=== PATIENT | female | born 1970 | race Caucasian/White ===

== ENCOUNTER 2016-09-13 14:09 | Inpatient (IN) | payer OTHER ==
[~2016-09-13] VITALS: Ht 157.5 cm; Wt 150.5 kg
[~2016-09-13 14:09] MED LIST: ADVAIR HFA120 INHALA IH; ALBUTEROL2.5 MG/3 M IH; ALPRAZOLAM0.25 M2 PO; ALPRAZOLAM2 MG PO; AMBIEN CR6.25 MG PO; AMBIEN10 MG PO; AMBIEN5 M1 PO; AMITRIPTYLINE H10 MG PO; AMITRIPTYLINE H25 MG PO; AMLODIPINE BESYL5 MG PO; AMOXICILLIN875 MG PO; AUGMENTIN875 MG PO; Advair HFA 115/21 IH; Ambien PO; BACTRIM,SEPT1 TABLET PO; BENADRYL25 MG PO; BENAZEPRIL HCL10 MG PO; BENAZEPRIL HCL40 MG PO; BENTYL20 MG PO; CARAFATE1 GM PO; CEFDINIR300 MG PO; CELEXA40 MG PO; CIPRO500 MG PO; CIPROFLOXACIN500 M1 PO; COLACE100 MG PO; COMPAZINE10 MG PO; CONSTULOSE10 GM/15 M PO; COUMADIN,JANTO2.5 MG PO; COUMADIN10 MG PO; COUMADIN2 MG PO; COUMADIN2.5 MG PO; COUMADIN5 MG PO; COUMADIN6 MG PO; COUMADIN7.5 MG PO; CYMBALTA20 MG PO; CYMBALTA30 MG PO; CYMBALTA60 MG PO; Ceftin PO; Colace PO; Coumadin,Jantoven PO; DILAUDID2 MG PO; DILAUDID4 MG PO; DOCUSATE SODIU100 MG PO; DOXYCYCLINE HY100 MG PO; ELAVIL10 MG PO; ESCITALOPRAM OX20 MG PO; Elavil PO; FIORICET,ESG1 TABLET PO; FLEXERIL10 MG PO; FUROSEMIDE40 MG PO; Feosol PO; GABAPENTIN300 MG PO; GABAPENTIN600 MG PO; GUAIATUSSIN AC118 ML PO; GUAIFENESIN AC473 ML PO; HALOBETASOL PRO15 G1 TP; HYDROCHLOROTHIA25 MG PO; HYDROCODON-ACE1 EA12 PO; HYDROCODON-ACE1 EAC7 PO; HYDROMORPHONE HC4 MG PO; Hydrodiuril,Oretic,E PO; KEFLEX500 MG PO; Keflex PO; LEVOFLOXACIN750 MG PO; LEXAPRO10 MG PO; LEXAPRO20 MG PO; LOMOTIL TABLET1 EACH PO; LORCET 5-325 M1 EACH PO; LORCET HD PO; LOTENSIN10 MG PO; LOTENSIN40 MG PO; LOTRISONE15 GM TP; LOVENOX120 MG/0.8 SC; LOVENOX150 MG/1 M SC; Levaquin PO; Lexapro PO; Lotensin PO; Lovenox SC; MACRODANTIN100 MG PO; METHADONE10 MG PO; METHADONE5 MG PO; MIRTAZAPINE15 MG PO; MUPIROCIN15 GM TP; MYCOSTATIN 100,60 ML PO; Maalox, Mylanta PO; NEURONTIN100 MG PO; NEURONTIN300 MG PO; NITROSTAT0.3 MG SL; NITROSTAT0.4 MG SL; NORCO 10/3251 TABLET PO; NORCO 5/3251 TABLET PO; NORCO 7.5/321 TABLET PO; NORVASC10 MG PO; NORVASC5 MG PO; Neurontin PO; Norvasc PO; OXYCODONE HCL10 MG PO; OXYCODONE HCL5 MG PO; OXYCODONE-APAP1 EACH PO; OxyCODONE PO; PERCOCET 5/31 TABLET PO; PRAVACHOL20 MG PO; PRAVASTATIN SOD40 MG PO; PREDNISONE10 M1 PO; PREDNISONE10 MG PO; PREDNISONE50 MG PO; PROMETHAZINE HC25 M1 PO; PROTONIX20 MG PO; PROTONIX40 MG PO; PROVENTIL HFA6.7 GM IH; PROVENTIL,2.5 MG/0.5 AEROSOL; PROVENTIL,2.5 MG/0.5 IH; Percocet 5/325,Endoc PO; Phenergan PO; Proventil,Ventolin H IH; QUETIAPINE FUMA50 MG PO; REMERON15 M2 PO; ROBITUSSIN100 MG/5 M PO; Reglan PO; Remeron PO; SEROQUEL100 MG PO; SEROQUEL50 MG PO; SYMBICORT60 INHALAT IH; Senokot,Sennagen PO; TORADOL10 MG PO; TYLENOL REGULA325 MG PO; ULTRAVATE 0.05%15 GM PO; ULTRAVATE 0.05%15 GM TP; Ultram PO; VALIUM5 MG PO; VENTOLIN HFA18 GM IH; VICODIN ES 7.51 EAC1 PO; VOLTAREN 1% GE100 GM TP; VOLTAREN5 ML OP; WARFARIN SODIU7.5 MG PO; WARFARIN SODIUM10 MG PO; WARFARIN SODIUM5 MG PO; XANAX XR3 MG PO; XANAX0.5 MG PO; XANAX1 MG PO; XANAX2 MG PO; Xanax PO; ZANAFLEX4 M1 PO; ZOFRAN ODT4 MG PO; ZOFRAN4 MG PO
[2016-09-13 15:33] LABS: BASOPHIL COUNT 0.1 K/uL (0-0.1); EOSINOPHIL (%) 0.2 % (0-5); HEMATOCRIT 36.8 % (36.0-46.0); IMMATURE GRANULOCYTE (%) 1.3 % (0.0-0.7); IMMATURE GRANULOCYTE COUNT 0.3 K/uL; LYMPHOCYTE COUNT 1.4 K/uL (1.0-2.8); MCH 29.7 PG (29.0-34.0); MCHC 32.1 G/DL (30.0-36.0); MCV 92.7 FL (83-99); MONOCYTE (%) 4.7 % (3-12); NEUTROPHIL (%) 87.2 % (45-76); RBC DIS.WIDTH-SD 51.8 % (39-53); RED BLOOD COUNT 3.97 M/uL (3.80-5.20)
[2016-09-13 15:42] LABS: WHITE BLOOD COUNT 21.8 K/uL (4.1-10.2)
[2016-09-13 15:47] LABS: CHLORIDE 103 mEq/L (99-109); POTASSIUM 4.5 mEq/L (3.7-5.4); SODIUM 137 mEq/L (136-147)
[2016-09-13 15:50] LABS: GLUCOSE 121 mg/dL (70-99)
[2016-09-13 15:51] LABS: ANION GAP 8 MEQ/L (2-14)
[2016-09-13 15:53] LABS: ALKALINE PHOSPHATASE 146 IU/L (3-129); GFR ESTIMATE (CALCULATED) 51 mL/min/
[2016-09-13 15:54] LABS: UREA NITROGEN (BUN) 16 mg/dL (9-23)
[2016-09-13 15:57] LABS: TROP-I INTERPRETATION NEGATIVE; TROPONIN-I 0.02 ng/mL (0.0-0.30)
[2016-09-13 15:58] LABS: INFLUENZA A VIRAL ANTIGEN NEGATIVE; INFLUENZA B VIRAL ANTIGEN NEGATIVE
[2016-09-13 16:20] LABS: INTER. NORMALIZED RATIO 2.5; PROTHROMBIN TIME 25.9 (9.2-11.2)
[2016-09-13 16:22] LABS: QUANTITATIVE HCG < 4.0 MIU/ML
[2016-09-13] MEDS ORDERED: COUMADIN1 MG PO ×2 (16:32)
[2016-09-13] MEDS ORDERED: NORCO 7.5/321 TABLET PO (16:33)
[2016-09-13] MEDS ORDERED: SEROQUEL200 MG PO (16:34)
[2016-09-13] MEDS ORDERED: ELAVIL10 MG PO (16:34)
[2016-09-13] MEDS ORDERED: CYMBALTA60 MG PO (16:34)
[2016-09-13] MEDS ORDERED: DURAGESIC12 MCG TD (16:35)
[2016-09-13] MEDS ORDERED: DURAGESIC25 MCG TD (16:36)
[2016-09-13 17:38] VITALS: BP 125/66
[2016-09-13 17:54] LABS: MEAN PLAT.VOLUME 11.3 uM^3 (9.5-12.4); PLAT.SUFFICIENCY ADEQUATE; PLATELET COUNT 184 K/uL (156-360)
[2016-09-13 19:24] VITALS: BP 117/58
[2016-09-13 23:10] VITALS: BP 116/60
[2016-09-14 03:05] VITALS: BP 110/64
[2016-09-14 03:08] VITALS: BP 100/56
[2016-09-14 07:41] LABS: INTER. NORMALIZED RATIO 2.2; PROTHROMBIN TIME 22.7 (9.2-11.2)
[2016-09-14 07:43] LABS: EOSINOPHIL (%) 1.1 % (0-5); EOSINOPHIL COUNT 0.2 K/uL (0-0.3); HEMATOCRIT 35.6 % (36.0-46.0); IMMATURE GRANULOCYTE (%) 0.8 % (0.0-0.7); IMMATURE GRANULOCYTE COUNT 0.1 K/uL; INSTRUMENT ABS NEUTROPHIL CT 14.4 K/uL; LYMPHOCYTE COUNT 1.3 K/uL (1.0-2.8); MCHC 31.5 G/DL (30.0-36.0); MCV 95.4 FL (83-99); MONOCYTE (%) 5.5 % (3-12); MONOCYTE COUNT 0.9 K/uL (0-0.8); NEUTROPHIL (%) 84.9 % (45-76); NEUTROPHIL COUNT 14.4 K/uL (1.8-6.4); RBC DIS.WIDTH-CV 15.4 % (11.8-14.6); RED BLOOD COUNT 3.73 M/uL (3.80-5.20)
[2016-09-14 07:52] LABS: ADD MIUA? YES; BILIRUBIN NEGATIVE; BLOOD NEGATIVE; COLOR YELLOW ((YELLOW)); GLUCOSE (STRIP) NEGATIVE; KETONES NEGATIVE; LEUKOCYTES SMALL; NITRITE NEGATIVE; PROTEIN (STRIP) 100; SPECIFIC GRAVITY 1.026 (1.000-1.030)
[2016-09-14 07:55] LABS: ANION GAP 7 MEQ/L (2-14); CHLORIDE 106 MEQ/L (99-109); GFR ESTIMATE (CALCULATED) > 59 mL/min/; GLUCOSE 108 mg/dL (70-99); POTASSIUM 4.7 MEQ/L (3.7-5.4); SAMPLE HEMOLYSIS CHECK 0; SAMPLE ICTERIC CHECK 0; SAMPLE LIPEMIA CHECK 0; SODIUM 141 MEQ/L (136-147); UREA NITROGEN (BUN) 19 mg/dL (9-23)
[2016-09-14 07:59] LABS: BACTERIA RARE /HPF; EPITHELIAL CELLS 1+ /HPF; MUCUS TRACE /LPF; RED BLOOD CELLS 0-5 /HPF (0-5); UCUL ADDED? NO; WHITE BLOOD CELLS 30-40 /HPF (0-5)
[2016-09-14 08:22] LABS: MEAN PLAT.VOLUME 11.6 uM^3 (9.5-12.4); PLAT.SUFFICIENCY ADEQUATE; PLATELET COUNT 165 K/uL (156-360)
[2016-09-14 08:55] VITALS: BP 116/62
[2016-09-14 12:49] VITALS: BP 94/57
[2016-09-14 16:47] VITALS: BP 96/57
[2016-09-14 23:59] VITALS: BP 116/66
[2016-09-15 07:14] LABS: INTER. NORMALIZED RATIO 2.5; PROTHROMBIN TIME 25.9 (9.2-11.2)
[2016-09-15 07:39] LABS: INTERNAL CONTROL VALID? YES
[2016-09-15 07:50] VITALS: BP 120/70
[2016-09-15 10:17] LABS: EOSINOPHIL (%) 2.9 % (0-5); EOSINOPHIL COUNT 0.3 K/uL (0-0.3); HEMATOCRIT 35.1 % (36.0-46.0); IMMATURE GRANULOCYTE (%) 1.2 % (0.0-0.7); IMMATURE GRANULOCYTE COUNT 0.1 K/uL; INSTRUMENT ABS NEUTROPHIL CT 7.1 K/uL; LYMPHOCYTE COUNT 1.4 K/uL (1.0-2.8); MCH 29.4 PG (29.0-34.0); MCHC 31.1 G/DL (30.0-36.0); MCV 94.6 FL (83-99); MEAN PLAT.VOLUME 11.5 uM^3 (9.5-12.4); MONOCYTE (%) 5.1 % (3-12); MONOCYTE COUNT 0.5 K/uL (0-0.8); NEUTROPHIL (%) 75.5 % (45-76); NEUTROPHIL COUNT 7.1 K/uL (1.8-6.4); PLATELET COUNT 185 K/uL (156-360); RBC DIS.WIDTH-CV 15.2 % (11.8-14.6); RBC DIS.WIDTH-SD 53.1 % (39-53); RED BLOOD COUNT 3.71 M/uL (3.80-5.20)
[2016-09-15 10:18] LABS: WHITE BLOOD COUNT 9.5 K/uL (4.1-10.2)
[2016-09-15 11:00] LABS: ANION GAP 9 MEQ/L (2-14); CHLORIDE 106 MEQ/L (99-109); GFR ESTIMATE (CALCULATED) > 59 mL/min/; GLUCOSE 85 mg/dL (70-99); MAGNESIUM 1.9 mg/dl (1.3-2.7); POTASSIUM 4.2 MEQ/L (3.7-5.4); SAMPLE HEMOLYSIS CHECK 0; SAMPLE ICTERIC CHECK 0; SAMPLE LIPEMIA CHECK 0; SODIUM 141 MEQ/L (136-147); UREA NITROGEN (BUN) 15 mg/dL (9-23)
[2016-09-15 11:50] VITALS: BP 120/64
[2016-09-15 16:15] VITALS: BP 139/88
[2016-09-15 23:46] VITALS: BP 102/87
[2016-09-16 07:16] LABS: EOSINOPHIL COUNT 0.3 K/uL (0-0.3); HEMATOCRIT 31.9 % (36.0-46.0); IMMATURE GRANULOCYTE (%) 1.8 % (0.0-0.7); IMMATURE GRANULOCYTE COUNT 0.1 K/uL; INSTRUMENT ABS NEUTROPHIL CT 4.5 K/uL; LYMPHOCYTE COUNT 1.3 K/uL (1.0-2.8); MCH 29.9 PG (29.0-34.0); MCHC 31.3 G/DL (30.0-36.0); MCV 95.2 FL (83-99); MONOCYTE COUNT 0.5 K/uL (0-0.8); NEUTROPHIL (%) 66.9 % (45-76); NEUTROPHIL COUNT 4.5 K/uL (1.8-6.4); PLATELET COUNT 190 K/uL (156-360); RBC DIS.WIDTH-CV 15.3 % (11.8-14.6); RBC DIS.WIDTH-SD 53.8 % (39-53); RED BLOOD COUNT 3.35 M/uL (3.80-5.20); WHITE BLOOD COUNT 6.8 K/uL (4.1-10.2)
[2016-09-16 07:31] LABS: INTER. NORMALIZED RATIO 2.8; PROTHROMBIN TIME 29.9 (9.2-11.2)
[2016-09-16 07:39] LABS: ALKALINE PHOSPHATASE 114 IU/L (3-129); ANION GAP 6 MEQ/L (2-14); CHLORIDE 108 MEQ/L (99-109); GFR ESTIMATE (CALCULATED) > 59 mL/min/; GLUCOSE 105 mg/dL (70-99); SAMPLE HEMOLYSIS CHECK 0; SAMPLE ICTERIC CHECK 0; SAMPLE LIPEMIA CHECK 0; SODIUM 141 MEQ/L (136-147); TOTAL BILIRUBIN 0.3 MG/DL (0.0-1.0); UREA NITROGEN (BUN) 12 mg/dL (9-23)
[2016-09-16 08:10] VITALS: BP 131/82
[2016-09-16 16:05] LABS: TROP-I INTERPRETATION NEGATIVE; TROPONIN-I < 0.01 ng/mL (0.0-0.30)
[2016-09-16 16:35] VITALS: BP 162/93
[2016-09-17 00:18] VITALS: BP 162/66
[2016-09-17 07:13] LABS: INTER. NORMALIZED RATIO 4.6; PROTHROMBIN TIME 49.3 (9.2-11.2)
[2016-09-17 07:47] VITALS: BP 141/82
[2016-09-18 00:28] VITALS: BP 135/71
[2016-09-18 06:50] LABS: MCH 29.6 PG (29.0-34.0); MCHC 32.4 G/DL (30.0-36.0); MCV 91.4 FL (83-99); MEAN PLAT.VOLUME 11.2 uM^3 (9.5-12.4); NRBC (%) 0.3 /100 WBC (0-0); RBC DIS.WIDTH-CV 14.6 % (11.8-14.6); RBC DIS.WIDTH-SD 49.1 % (39-53); RED BLOOD COUNT 3.72 M/uL (3.80-5.20)
[2016-09-18 06:52] LABS: PLATELET COUNT 249 K/uL (156-360); WHITE BLOOD COUNT 8.9 K/uL (4.1-10.2)
[2016-09-18 06:53] LABS: PROTHROMBIN TIME 59.9 (9.2-11.2)
[2016-09-18 07:15] LABS: INTER. NORMALIZED RATIO 5.6
[2016-09-18 07:36] LABS: ANION GAP 8 MEQ/L (2-14); CHLORIDE 105 MEQ/L (99-109); GFR ESTIMATE (CALCULATED) > 59 mL/min/; GLUCOSE 112 mg/dL (70-99); POTASSIUM 4.1 MEQ/L (3.7-5.4); SAMPLE HEMOLYSIS CHECK 0; SAMPLE ICTERIC CHECK 0; SAMPLE LIPEMIA CHECK 0; SODIUM 143 MEQ/L (136-147); UREA NITROGEN (BUN) 13 mg/dL (9-23)
[2016-09-18 07:41] LABS: ALKALINE PHOSPHATASE 153 IU/L (3-129); TOTAL BILIRUBIN 0.4 MG/DL (0.0-1.0)
[2016-09-18 08:26] LABS: ATYPICAL LYMPHOCYTE 1.7 %; EOSINOPHIL ABS CT 0; INSTRUMENT ABS NEUTROPHIL CT 6.2 K/uL; LYMPHOCYTES 12.2 % (15.0-45.0); MYELOCYTES 1.7 %; PLAT.SUFFICIENCY ADEQUATE; SEG.NEUTROPHILS 78.3 % (46.0-76.0); SMUDGE CELLS 2.6
[2016-09-18 08:28] VITALS: BP 132/82
[2016-09-18 15:40] VITALS: BP 148/80
[2016-09-18 23:53] VITALS: BP 141/77
[2016-09-19 06:41] LABS: HEMATOCRIT 33.7 % (36.0-46.0); MCH 29.4 PG (29.0-34.0); MCHC 32.3 G/DL (30.0-36.0); MCV 90.8 FL (83-99); MEAN PLAT.VOLUME 10.7 uM^3 (9.5-12.4); NRBC (%) 0.2 /100 WBC (0-0); PLATELET COUNT 263 K/uL (156-360); RBC DIS.WIDTH-CV 14.8 % (11.8-14.6); RBC DIS.WIDTH-SD 48.7 % (39-53); RED BLOOD COUNT 3.71 M/uL (3.80-5.20); WHITE BLOOD COUNT 8.9 K/uL (4.1-10.2)
[2016-09-19 07:04] LABS: ANION GAP 10 MEQ/L (2-14); CHLORIDE 104 MEQ/L (99-109); GFR ESTIMATE (CALCULATED) > 59 mL/min/; GLUCOSE 104 mg/dL (70-99); POTASSIUM 3.9 MEQ/L (3.7-5.4); SAMPLE HEMOLYSIS CHECK 0; SAMPLE ICTERIC CHECK 0; SAMPLE LIPEMIA CHECK 0; SODIUM 142 MEQ/L (136-147); UREA NITROGEN (BUN) 17 mg/dL (9-23)
[2016-09-19 07:06] LABS: PROTHROMBIN TIME 54.2 (9.2-11.2)
[2016-09-19 07:08] LABS: INTER. NORMALIZED RATIO 5.1
[2016-09-19 07:45] VITALS: BP 144/62
[2016-09-19 11:21] VITALS: BP 150/62
[2016-09-19] MEDS ORDERED: DOXYCYCLINE HY100 M3 PO (12:20)
== END 2016-09-19 16:13 | disposition home or self-care (01) | DRG 871 ==
LOC: EME 14:09 → 2EAST 16:21 → EDOF 16:21 → 2EAST 17:32
PROVIDERS: Emergency Medicine; Internal Medicine
DX: A41.9 Sepsis, unspecified organism (principal); J15.212 Pneumonia due to Methicillin resistant Staphylococcus aureus; D68.9 Coagulation defect, unspecified; I27.2 Other secondary pulmonary hypertension; D68.51 Activated protein C resistance; J96.01 Acute respiratory failure with hypoxia; I10 Essential (primary) hypertension; G89.4 Chronic pain syndrome; Z86.711 Personal history of pulmonary embolism; Z86.718 Personal history of other venous thrombosis and embolism; T50.905A Adverse effect of unspecified drugs, medicaments and biological substances, initial encounter; Z95.828 Presence of other vascular implants and grafts; Z79.01 Long term (current) use of anticoagulants; E66.01 Morbid (severe) obesity due to excess calories; Z68.44 Body mass index [BMI] 60.0-69.9, adult; E78.5 Hyperlipidemia, unspecified; D64.9 Anemia, unspecified; Z86.73 Personal history of transient ischemic attack (TIA), and cerebral infarction without residual deficits; F41.9 Anxiety disorder, unspecified; J45.909 Unspecified asthma, uncomplicated; G47.33 Obstructive sleep apnea (adult) (pediatric); E11.9 Type 2 diabetes mellitus without complications; Z86.14 Personal history of Methicillin resistant Staphylococcus aureus infection; R79.89 Other specified abnormal findings of blood chemistry; R65.20 Severe sepsis without septic shock
CPT/HCPCS: 70450; 71010; 71020; 80048; 80053; 81003; 83605; 83735; 84484; 84702; 85025; 85027; 85610; 87040; 87070; 87077; 87147; 87186; 87205; 87449; 87502; 93005; 94010; 94640; 94640 76; 94667; 94760; 94799; 99202; 99281; 99285; J1885; J2405; J2543; J2765; J3370; J7030; J7050

== ENCOUNTER 2016-10-12 21:22 | Emergency (ER) | payer OTHER ==
[~2016-10-12] VITALS: Ht 157.5 cm; Wt 142.9 kg
[~2016-10-12 21:22] MED LIST changes: +COUMADIN1 MG PO; +DOXYCYCLINE HY100 M3 PO; +DURAGESIC12 MCG TD; +DURAGESIC25 MCG TD; +SEROQUEL200 MG PO
[2016-10-13 00:31] VITALS: BP 129/93
== END 2016-10-13 00:32 | disposition home or self-care (01) ==
LOC: EME 21:22
DX: S00.12XA Contusion of left eyelid and periocular area, initial encounter (principal); S09.90XA Unspecified injury of head, initial encounter; I10 Essential (primary) hypertension; E66.01 Morbid (severe) obesity due to excess calories; Y04.2XXA Assault by strike against or bumped into by another person, initial encounter; Y92.89 Other specified places as the place of occurrence of the external cause; Z88.6 Allergy status to analgesic agent
CPT/HCPCS: 70450; 70480; 99281; 99283; J0595

== ENCOUNTER 2016-11-17 11:50 | Emergency (ER) | payer OTHER ==
[~2016-11-17] VITALS: Ht 160 cm; Wt 145.8 kg
[2016-11-17 15:25] LABS: HEMATOCRIT 40.5 % (36.0-46.0); MCH 30.1 PG (29.0-34.0); MCHC 33.3 G/DL (30.0-36.0); MCV 90.4 FL (83-99); RBC DIS.WIDTH-CV 14.9 % (11.8-14.6); RBC DIS.WIDTH-SD 49.7 % (39-53); RED BLOOD COUNT 4.48 M/uL (3.80-5.20); WHITE BLOOD COUNT 10.3 K/uL (4.1-10.2)
[2016-11-17 15:32] LABS: INTER. NORMALIZED RATIO 2.3; PROTHROMBIN TIME 24.5 (9.2-11.2)
[2016-11-17 15:45] LABS: CHLORIDE 104 mEq/L (99-109); POTASSIUM 3.8 mEq/L (3.7-5.4); SODIUM 141 mEq/L (136-147)
[2016-11-17 15:46] LABS: GLUCOSE 147 mg/dL (70-99)
[2016-11-17 15:48] LABS: ANION GAP 9 MEQ/L (2-14)
[2016-11-17 15:50] LABS: GFR ESTIMATE (CALCULATED) 56 mL/min/
[2016-11-17 15:51] LABS: UREA NITROGEN (BUN) 16 mg/dL (9-23)
[2016-11-17] MEDS ORDERED: NAPROXEN500 MG PO (16:15)
[2016-11-17 16:43] LABS: MEAN PLAT.VOLUME 10.7 uM^3 (9.5-12.4); PLAT.SUFFICIENCY ADEQUATE; PLATELET COUNT 232 K/uL (156-360)
[2016-11-17 17:10] LABS: Estimated Average Glucose 134 mg/dL (70-123); HEMOGLOBIN A1c (GLYCOHEMOGLOB) 6.3 % HGB (Below 5.7)
[2016-11-17 17:41] LABS: ADD MIUA? YES; BILIRUBIN NEGATIVE; BLOOD LARGE; COLOR YELLOW ((YELLOW)); GLUCOSE (STRIP) NEGATIVE; KETONES NEGATIVE; LEUKOCYTES MODERATE; PROTEIN (STRIP) NEGATIVE; SPECIFIC GRAVITY 1.018 (1.000-1.030); UROBILINOGEN 0.2 MG/DL (0.2-1.0)
[2016-11-17 17:51] LABS: BACTERIA RARE /HPF; EPITHELIAL CELLS 2+ /HPF; HYALINE CASTS 0-5 /LPF; MUCUS TRACE /LPF; RED BLOOD CELLS 20-30 /HPF (0-5); UCUL ADDED? NO
[2016-11-17 17:54] LABS: NITRITE POSITIVE
[2016-11-17] MEDS ORDERED: KEFLEX500 MG PO (18:01)
[2016-11-17] MEDS ORDERED: PYRIDIUM200 MG PO (18:49)
[2016-11-17 19:02] VITALS: BP 95/68
== END 2016-11-17 19:03 | disposition home or self-care (01) ==
LOC: EME 11:50
PROVIDERS: Physician Assistant; Physician Assistant Medical
DX: N95.0 Postmenopausal bleeding (principal); N30.90 Cystitis, unspecified without hematuria; Z91.81 History of falling; Z86.711 Personal history of pulmonary embolism; Z79.01 Long term (current) use of anticoagulants; I10 Essential (primary) hypertension; K21.9 Gastro-esophageal reflux disease without esophagitis
CPT/HCPCS: 76856; 80048; 81003; 83036; 84702; 85027; 85610; 99281; 99284; J1885

== ENCOUNTER 2016-12-01 15:47 | Inpatient (IN) | payer OTHER ==
[~2016-12-01] VITALS: Ht 157.5 cm; Wt 160.1 kg
[~2016-12-01 15:47] MED LIST changes: +NAPROXEN500 MG PO; +PYRIDIUM200 MG PO
[2016-12-01 16:52] LABS: POINT-OF-CARE METER ID UU13113702
[2016-12-01 17:08] LABS: HEMATOCRIT 40.2 % (36.0-46.0); MCH 29.6 PG (29.0-34.0); MCHC 32.8 G/DL (30.0-36.0); MCV 90.1 FL (83-99); RBC DIS.WIDTH-CV 15.1 % (11.8-14.6); RBC DIS.WIDTH-SD 50.3 % (39-53); RED BLOOD COUNT 4.46 M/uL (3.80-5.20); WHITE BLOOD COUNT 8.7 K/uL (4.1-10.2)
[2016-12-01 17:15] LABS: INTER. NORMALIZED RATIO 2.5
[2016-12-01 17:23] LABS: CHLORIDE 103 mEq/L (99-109); POTASSIUM 3.6 mEq/L (3.7-5.4); SODIUM 138 mEq/L (136-147)
[2016-12-01 17:25] LABS: GLUCOSE 94 mg/dL (70-99)
[2016-12-01 17:26] LABS: ANION GAP 13 MEQ/L (2-14)
[2016-12-01 17:29] LABS: GFR ESTIMATE (CALCULATED) 14 mL/min/
[2016-12-01 17:30] LABS: UREA NITROGEN (BUN) 29 mg/dL (9-23)
[2016-12-01 17:32] LABS: TROP-I INTERPRETATION NEGATIVE; TROPONIN-I < 0.01 ng/mL (0.0-0.30)
[2016-12-01 17:37] LABS: QUANTITATIVE HCG 4.6 MIU/ML
[2016-12-01 18:08] LABS: HEMATOLOGY COMMENT 1 SN; MEAN PLAT.VOLUME 10.9 uM^3 (9.5-12.4); PLAT.SUFFICIENCY ADEQUATE; PLATELET COUNT 207 K/uL (156-360)
[2016-12-01 18:35] LABS: CREATINE KINASE 47 IU/L (1-294)
[2016-12-01] MEDS ORDERED: NORCO 5/3251 TABLET PO (19:17)
[2016-12-01] MEDS ORDERED: PROTONIX40 MG PO (19:18)
[2016-12-01] MEDS ORDERED: LYRICA50 MG PO (19:19)
[2016-12-01] MEDS ORDERED: HYDROCHLOROTHIA25 MG PO (19:19)
[2016-12-01] MEDS ORDERED: LYRICA75 MG PO (19:20)
[2016-12-01 20:24] LABS: ADD MIUA? YES; BILIRUBIN NEGATIVE; BLOOD SMALL; COLOR YELLOW ((YELLOW)); GLUCOSE (STRIP) NEGATIVE; KETONES NEGATIVE; LEUKOCYTES LARGE; NITRITE NEGATIVE; PROTEIN (STRIP) 100; SPECIFIC GRAVITY 1.015 (1.000-1.030); UROBILINOGEN 0.2 MG/DL (0.2-1.0)
[2016-12-01 20:39] LABS: BACTERIA 3+ /HPF; CASTS NONE SEEN /LPF; CRYSTALS NONE SEEN; EPITHELIAL CELLS 2+ /HPF; MUCUS 1+ /LPF; RED BLOOD CELLS 0-5 /HPF (0-5); UCUL ADDED? YES
[2016-12-01 20:40] LABS: WHITE BLOOD CELLS TNTC /HPF (0-5)
[2016-12-01 22:15] LABS: HDL CHOLESTEROL 42 MG/DL (Desirable>=50); LDL CHOLESTEROL 106 mg/dL (Desirable<100); NON-HDL CHOLESTEROL 139 mg/dL (Desirable<160); TOTAL CHOLESTEROL 181 mg/dL (Desirable<200); TRIGLYCERIDES 166 MG/DL (Normal: <150)
[2016-12-01 22:41] LABS: AMPHETAMINES QUANT VALUE 0 NG/ML; BARBITUATES QUANT VALUE 0 NG/ML; BENZODIAZEPINES QUANT VALUE 0 NG/ML; BENZODIAZEPINES, URINE SCREEN Negative (200 ng/mL); MARIJUANA QUANT VALUE 0 NG/ML; PHENCYCLIDINE QUANT VALUE 0 NG/ML
[2016-12-01 22:43] LABS: Estimated Average Glucose 128 mg/dL (70-123); HEMOGLOBIN A1c (GLYCOHEMOGLOB) 6.1 % HGB (Below 5.7)
[2016-12-02 06:10] LABS: HEMATOCRIT 37.4 % (36.0-46.0); MCH 29.3 PG (29.0-34.0); MCHC 32.1 G/DL (30.0-36.0); MCV 91.2 FL (83-99); PLATELET COUNT 195 K/uL (156-360); RBC DIS.WIDTH-CV 15.4 % (11.8-14.6); RBC DIS.WIDTH-SD 51.4 % (39-53); WHITE BLOOD COUNT 7.2 K/uL (4.1-10.2)
[2016-12-02 08:58] VITALS: BP 102/60
[2016-12-02 09:43] LABS: ANION GAP 14 MEQ/L (2-14); CHLORIDE 107 MEQ/L (99-109); GFR ESTIMATE (CALCULATED) 24 mL/min/; GLUCOSE 114 mg/dL (70-99); POTASSIUM 4.1 MEQ/L (3.7-5.4); SAMPLE HEMOLYSIS CHECK 0; SAMPLE ICTERIC CHECK 0; SAMPLE LIPEMIA CHECK 0; SODIUM 144 MEQ/L (136-147); UREA NITROGEN (BUN) 27 mg/dL (9-23)
[2016-12-02 13:02] LABS: UR CREATININE CONCENTRATION 138.2 MG/DL
[2016-12-02 15:29] VITALS: BP 118/64
[2016-12-02 17:08] VITALS: BP 123/72
[2016-12-02 17:09] VITALS: BP 146/91
[2016-12-02 20:00] VITALS: BP 132/76
[2016-12-02 23:50] VITALS: BP 117/69
[2016-12-03 03:42] VITALS: BP 125/69
[2016-12-03 06:20] LABS: MCH 29.5 PG (29.0-34.0); MCHC 32.1 G/DL (30.0-36.0); MCV 92.1 FL (83-99); MEAN PLAT.VOLUME 11.6 uM^3 (9.5-12.4); PLATELET COUNT 168 K/uL (156-360); RBC DIS.WIDTH-CV 15.2 % (11.8-14.6); RBC DIS.WIDTH-SD 52.4 % (39-53); RED BLOOD COUNT 3.69 M/uL (3.80-5.20); WHITE BLOOD COUNT 6.2 K/uL (4.1-10.2)
[2016-12-03 06:39] LABS: INTER. NORMALIZED RATIO 3.5; PROTHROMBIN TIME 40.9 SEC (10.2-12.9)
[2016-12-03 07:00] LABS: ANION GAP 6 MEQ/L (2-14); CHLORIDE 105 MEQ/L (99-109); GFR ESTIMATE (CALCULATED) 56 mL/min/; GLUCOSE 119 mg/dL (70-99); POTASSIUM 4.1 MEQ/L (3.7-5.4); SAMPLE HEMOLYSIS CHECK 0; SAMPLE ICTERIC CHECK 0; SAMPLE LIPEMIA CHECK 0; SODIUM 140 MEQ/L (136-147); UREA NITROGEN (BUN) 19 mg/dL (9-23)
[2016-12-03 08:12] VITALS: BP 109/64
[2016-12-03] MEDS ORDERED: CEFDINIR300 MG PO (11:02)
== END 2016-12-03 12:00 | disposition home or self-care (01) | DRG 683 ==
LOC: EME 15:47 → 5SOUTH 21:15 → EDOF 21:15 → 5SOUTH 21:15 → EDOF 12-02 00:02 → 5SOUTH 12-02 00:03
PROVIDERS: Emergency Medicine; Hospitalist; Internal Medicine; Physician Assistant Medical
DX: N17.1 Acute kidney failure with acute cortical necrosis (principal); D68.51 Activated protein C resistance; E11.40 Type 2 diabetes mellitus with diabetic neuropathy, unspecified; I95.9 Hypotension, unspecified; G45.9 Transient cerebral ischemic attack, unspecified; N30.00 Acute cystitis without hematuria; E66.01 Morbid (severe) obesity due to excess calories; E78.5 Hyperlipidemia, unspecified; E86.0 Dehydration; E87.6 Hypokalemia; F32.9 Major depressive disorder, single episode, unspecified; G47.00 Insomnia, unspecified; G47.33 Obstructive sleep apnea (adult) (pediatric); I10 Essential (primary) hypertension; Z87.440 Personal history of urinary (tract) infections; J45.909 Unspecified asthma, uncomplicated; K21.9 Gastro-esophageal reflux disease without esophagitis; Z68.44 Body mass index [BMI] 60.0-69.9, adult; Z79.01 Long term (current) use of anticoagulants; Z79.899 Other long term (current) drug therapy; Z80.3 Family history of malignant neoplasm of breast; Z83.3 Family history of diabetes mellitus; Z86.14 Personal history of Methicillin resistant Staphylococcus aureus infection; Z86.711 Personal history of pulmonary embolism; Z86.718 Personal history of other venous thrombosis and embolism; Z86.73 Personal history of transient ischemic attack (TIA), and cerebral infarction without residual deficits; Z90.49 Acquired absence of other specified parts of digestive tract; G89.29 Other chronic pain; H53.8 Other visual disturbances; M54.5 Low back pain; M62.838 Other muscle spasm; R00.0 Tachycardia, unspecified; R25.1 Tremor, unspecified; R26.2 Difficulty in walking, not elsewhere classified
CPT/HCPCS: 70450; 70551; 71010; 76770; 80048; 80061; 80306 90; 81003; 82010; 82436; 82550; 82550 91; 82570; 82948; 83036; 84300; 84484; 84702; 85027; 85610; 87077; 87086; 87186; 93005; 99281; 99285; J0696; J2060; J2405; J7030; J7050

== ENCOUNTER 2017-05-26 11:04 | Observation (INO) | payer OTHER ==
[~2017-05-26] VITALS: Ht 160 cm; Wt 163.5 kg
[~2017-05-26 11:04] MED LIST changes: +LYRICA100 MG PO; +LYRICA50 MG PO
[2017-05-26 12:16] LABS: HEMATOCRIT 35.5 % (36.0-46.0); HEMOGLOBIN 11.8 G/DL (11.9-15.5); MCH 29.4 PG (29.0-34.0); MCHC 33.2 G/DL (30.0-36.0); MCV 88.3 FL (83-99); PLATELET COUNT 184 K/uL (156-360); RBC DIS.WIDTH-CV 15.1 % (11.8-14.6); RBC DIS.WIDTH-SD 49.5 % (39-53); RED BLOOD COUNT 4.02 M/uL (3.80-5.20); WHITE BLOOD COUNT 8.4 K/uL (4.1-10.2)
[2017-05-26 12:21] LABS: INTER. NORMALIZED RATIO 2.8
[2017-05-26 12:23] LABS: CHLORIDE 100 mEq/L (99-109); POTASSIUM 3.9 mEq/L (3.7-5.4); SODIUM 134 mEq/L (136-147)
[2017-05-26 12:24] LABS: GLUCOSE 117 mg/dL (70-99); PTT 45.9 SEC (25-37)
[2017-05-26 12:28] LABS: CREATININE 2.9 mg/dL (0.6-1.3); GFR ESTIMATE (CALCULATED) 18 mL/min/
[2017-05-26 12:29] LABS: UREA NITROGEN (BUN) 47 mg/dL (9-23)
[2017-05-26] MEDS ORDERED: HYDROCODON-ACE1 EAC9 PO (15:58)
[2017-05-26] MEDS ORDERED: PANTOPRAZOLE SO40 MG PO (15:58)
[2017-05-26] MEDS ORDERED: QUETIAPINE FUM300 MG PO (16:00)
[2017-05-26] MEDS ORDERED: AMLODIPINE BESYL5 MG PO (16:01)
[2017-05-26] MEDS ORDERED: ZOLPIDEM TARTRA10 MG PO (16:01)
[2017-05-26] MEDS ORDERED: ALPRAZOLAM1 MG PO (16:02)
[2017-05-26] MEDS ORDERED: PROMETHAZINE HC25 M1 PO (16:02)
[2017-05-26] MEDS ORDERED: DICLOFENAC SOD100 G1 TP (16:03)
[2017-05-26] MEDS ORDERED: LYRICA100 MG PO (16:04)
[2017-05-26] MEDS ORDERED: FENTANYL1 EAC5 TD (16:04)
[2017-05-26] MEDS ORDERED: AMITRIPTYLINE H10 MG PO (16:06)
[2017-05-26] MEDS ORDERED: CYCLOBENZAPRINE10 MG PO (16:06)
[2017-05-26] MEDS ORDERED: DULOXETINE HCL60 MG PO (16:07)
[2017-05-26] MEDS ORDERED: BENAZEPRIL HCL40 MG PO (16:07)
[2017-05-26] MEDS ORDERED: WARFARIN SODIUM5 MG PO (16:10)
[2017-05-26] MEDS ORDERED: VENTOLIN HFA18 GM IH (16:12)
[2017-05-26] MEDS ORDERED: HYDROCHLOROTHIA25 MG PO (16:13)
[2017-05-26 18:06] VITALS: BP 99/59
[2017-05-26 20:18] VITALS: BP 104/54; BP 110/59
[2017-05-26 21:53] LABS: APPEARANCE SL.HAZY ((CLEAR)); BILIRUBIN NEGATIVE; BLOOD MODERATE; COLOR YELLOW ((YELLOW)); GLUCOSE (STRIP) NEGATIVE; KETONES NEGATIVE; LEUKOCYTES SMALL; NITRITE NEGATIVE; PROTEIN (STRIP) NEGATIVE; SPECIFIC GRAVITY 1.008 (1.000-1.030); UROBILINOGEN 0.2 MG/DL (0.2-1.0)
[2017-05-26 22:03] LABS: BACTERIA RARE /HPF; EPITHELIAL CELLS RARE /HPF; MUCUS TRACE /LPF; RED BLOOD CELLS 0-5 /HPF (0-5); UCUL ADDED? YES; WHITE BLOOD CELLS TNTC /HPF (0-5)
[2017-05-26 22:37] LABS: UR CREATININE CONCENTRATION 52.3 MG/DL
[2017-05-27 00:51] VITALS: BP 108/50
[2017-05-27 04:04] VITALS: BP 95/56
[2017-05-27 05:55] LABS: HEMATOCRIT 32.4 % (36.0-46.0); HEMOGLOBIN 10.3 G/DL (11.9-15.5); MCH 28.1 PG (29.0-34.0); MCHC 31.8 G/DL (30.0-36.0); MCV 88.5 FL (83-99); PLATELET COUNT 199 K/uL (156-360); RBC DIS.WIDTH-CV 15.3 % (11.8-14.6); RBC DIS.WIDTH-SD 49.9 % (39-53); RED BLOOD COUNT 3.66 M/uL (3.80-5.20); WHITE BLOOD COUNT 5.9 K/uL (4.1-10.2)
[2017-05-27 06:13] LABS: INTER. NORMALIZED RATIO 2.5
[2017-05-27 06:20] LABS: CHLORIDE 103 MEQ/L (99-109); CREATININE 2.4 MG/DL (0.6-1.3); GFR ESTIMATE (CALCULATED) 23 mL/min/; GLUCOSE 112 mg/dL (70-99); POTASSIUM 4.4 MEQ/L (3.7-5.4); SODIUM 136 MEQ/L (136-147); UREA NITROGEN (BUN) 40 mg/dL (9-23)
[2017-05-27 09:00] VITALS: BP 106/57
[2017-05-27 12:14] VITALS: BP 107/57
[2017-05-27 16:03] VITALS: BP 106/56
[2017-05-27 19:22] VITALS: BP 134/85
[2017-05-28 00:44] VITALS: BP 123/80
[2017-05-28 04:11] VITALS: BP 132/59
[2017-05-28 06:28] LABS: WHITE BLOOD COUNT 6.2 K/uL (4.1-10.2)
[2017-05-28 06:29] LABS: BASOPHIL (%) 0.6 % (0-1); EOSINOPHIL (%) 3.6 % (0-5); EOSINOPHIL COUNT 0.2 K/uL (0-0.3); HEMATOCRIT 35.2 % (36.0-46.0); HEMOGLOBIN 11.4 G/DL (11.9-15.5); IMMATURE GRANULOCYTE (%) 0.5 % (0.0-0.7); LYMPHOCYTE (%) 21.7 % (15-42); LYMPHOCYTE COUNT 1.3 K/uL (1.0-2.8); MCH 29.7 PG (29.0-34.0); MCHC 32.4 G/DL (30.0-36.0); MCV 91.7 FL (83-99); MONOCYTE (%) 11.2 % (3-12); MONOCYTE COUNT 0.7 K/uL (0-0.8); NEUTROPHIL (%) 62.4 % (45-76); NEUTROPHIL COUNT 3.9 K/uL (1.8-6.4); PLATELET COUNT 208 K/uL (156-360); RBC DIS.WIDTH-CV 15.8 % (11.8-14.6); RBC DIS.WIDTH-SD 53.9 % (39-53); RED BLOOD COUNT 3.84 M/uL (3.80-5.20)
[2017-05-28 06:41] LABS: INTER. NORMALIZED RATIO 2.3
[2017-05-28 06:57] LABS: ALBUMIN 3.3 G/DL (3.2-4.8); ALKALINE PHOSPHATASE 190 IU/L (3-129); ALT (GPT) 54 IU/L (3-49); AST (GOT) 46 IU/L (2-34); CHLORIDE 105 MEQ/L (99-109); GFR ESTIMATE (CALCULATED) 34 mL/min/; GLUCOSE 106 mg/dL (70-99); POTASSIUM 4.5 MEQ/L (3.7-5.4); SODIUM 139 MEQ/L (136-147); TOTAL BILIRUBIN 0.2 MG/DL (0.0-1.0); TOTAL PROTEIN 6.6 G/DL (6.4-8.3); UREA NITROGEN (BUN) 30 mg/dL (9-23)
[2017-05-28 06:58] LABS: CREATININE 1.7 MG/DL (0.6-1.3)
[2017-05-28 08:28] VITALS: BP 117/61
[2017-05-28 12:40] VITALS: BP 128/88
[2017-05-28 15:51] VITALS: BP 114/74
[2017-05-28 23:41] VITALS: BP 131/76
[2017-05-29 04:03] VITALS: BP 111/64
[2017-05-29 06:28] LABS: BASOPHIL (%) 1.1 % (0-1); BASOPHIL COUNT 0.1 K/uL (0-0.1); EOSINOPHIL (%) 4.3 % (0-5); EOSINOPHIL COUNT 0.2 K/uL (0-0.3); HEMATOCRIT 33.3 % (36.0-46.0); HEMOGLOBIN 10.7 G/DL (11.9-15.5); IMMATURE GRANULOCYTE (%) 0.9 % (0.0-0.7); LYMPHOCYTE (%) 34.7 % (15-42); LYMPHOCYTE COUNT 1.5 K/uL (1.0-2.8); MCHC 32.1 G/DL (30.0-36.0); MCV 90.2 FL (83-99); MONOCYTE (%) 11.5 % (3-12); MONOCYTE COUNT 0.5 K/uL (0-0.8); NEUTROPHIL (%) 47.5 % (45-76); NEUTROPHIL COUNT 2.1 K/uL (1.8-6.4); PLATELET COUNT 230 K/uL (156-360); RBC DIS.WIDTH-CV 15.5 % (11.8-14.6); RBC DIS.WIDTH-SD 51.4 % (39-53); RED BLOOD COUNT 3.69 M/uL (3.80-5.20); WHITE BLOOD COUNT 4.4 K/uL (4.1-10.2)
[2017-05-29 06:38] LABS: INTER. NORMALIZED RATIO 2.4
[2017-05-29 06:51] LABS: CHLORIDE 104 MEQ/L (99-109); CREATININE 1.3 MG/DL (0.6-1.3); GFR ESTIMATE (CALCULATED) 46 mL/min/; GLUCOSE 100 mg/dL (70-99); POTASSIUM 4.5 MEQ/L (3.7-5.4); SODIUM 140 MEQ/L (136-147); UREA NITROGEN (BUN) 21 mg/dL (9-23)
[2017-05-29 08:45] VITALS: BP 115/70
[2017-05-29] MEDS ORDERED: INDERAL LA80 MG PO (09:34)
[2017-05-29 11:34] VITALS: BP 129/68
== END 2017-05-29 15:49 | disposition home or self-care (01) ==
LOC: EME 11:04 → EDOF 15:12 → 5WEST 15:12 → ENRESERV 15:13 → 5WEST 17:30
PROVIDERS: Emergency Medicine; Internal Medicine; Nurse Practitioner Family; Student in an Organized Health Care Education/Training Program
DX: N17.9 Acute kidney failure, unspecified (principal); R25.1 Tremor, unspecified; G43.909 Migraine, unspecified, not intractable, without status migrainosus; R56.9 Unspecified convulsions; D68.51 Activated protein C resistance; D68.59 Other primary thrombophilia; E66.01 Morbid (severe) obesity due to excess calories; Z68.44 Body mass index [BMI] 60.0-69.9, adult; G47.33 Obstructive sleep apnea (adult) (pediatric); N39.0 Urinary tract infection, site not specified; Z79.01 Long term (current) use of anticoagulants; G47.00 Insomnia, unspecified; I10 Essential (primary) hypertension; M54.9 Dorsalgia, unspecified; M25.569 Pain in unspecified knee; G89.29 Other chronic pain; F41.9 Anxiety disorder, unspecified; Z86.72 Personal history of thrombophlebitis; Z86.711 Personal history of pulmonary embolism; Z88.5 Allergy status to narcotic agent; Z88.8 Allergy status to other drugs, medicaments and biological substances; Z83.3 Family history of diabetes mellitus; Z80.41 Family history of malignant neoplasm of ovary; Z80.3 Family history of malignant neoplasm of breast; Z80.49 Family history of malignant neoplasm of other genital organs
CPT/HCPCS: 70450; 70544; 70551; 76770; 80048; 80053; 81003; 82043; 82570; 82948; 83605; 83930; 83935; 84300; 85025; 85027; 85610; 85730; 87040; 87077; 87086; 87186; 87641; 93005; 93880; 94640; 94640 76; 94760; 99202; 99281; 99285; G0378; J2060; J2405; J7030; S0028